=== PATIENT | female | born 2000 | race Two or more races ===

== ENCOUNTER 2024-04-22 14:48 | Emergency (ER) | payer MEDICAID ==
[~2024-04-22] VITALS: Ht 154.9 cm; Wt 56.8 kg
[2024-04-22 14:53] VITALS: BP 116/59; PULSE 74; RESP 16; TEMP 98.4; O2SAT 99
[2024-04-22] MEDS: IBUPROFEN 600 MG TABLET PO ONE (15:29)
== END 2024-04-22 15:56 | disposition home or self-care (01) ==
LOC: EMS 14:52
DX: S63.502A Unspecified sprain of left wrist, initial encounter (principal); Z91.013 Allergy to seafood; W19.XXXA Unspecified fall, initial encounter; Y93.89 Activity, other specified; Y92.89 Other specified places as the place of occurrence of the external cause; Y99.0 Civilian activity done for income or pay
CPT/HCPCS: 99284; 73110-TC; 73130-TC; Z7502; Z7610